=== PATIENT | female | born 1970 | race Caucasian/White ===

== ENCOUNTER → 2020-01-25 | Outpatient (CLI) | payer BC, MEDICARE ==
[~2020-01-25] MED LIST: BYST10TA2 PO; EQL50TAB2 PO; FURO40TA2 PO; GABA-843 PO; KLOR10TA76 PO; LANS30CA PO; LEVO25TA5 PO; LOSA50TA5 PO; MELO7.5T7 PO; META1TAB22 PO; MYRB25TA PO; STEL90IN INJ; VENL150C43 PO; VESI10TA2 PO; VITA200048 PO; VITATAB11 PO; ZONI50CA PO
== END ==
LOC: M LABSMTC 10:21
PROVIDERS: ATTEND Anesthesiology
DX: Z01.812 Encounter for preprocedural laboratory examination (principal); Z20.828 Contact with and (suspected) exposure to other viral communicable diseases

== ENCOUNTER 2020-01-30 10:38 | Day surgery (SDC) | payer BC, MEDICARE ==
[~2020-01-30] VITALS: Ht 160 cm; Wt 130.6 kg
[2020-01-30] MEDS ORDERED: MIDAZOLAM INJ 2MG/2ML VIAL (J2250 PER 1MG) As Ordered ONE (10:42)
[2020-01-30] MEDS ORDERED: fentaNYL 100 MCG/2 ML INJECTION (J3010) As Ordered ONE (10:43)
[2020-01-30] MEDS ORDERED: propofoL 500 MG/50 ML VIAL As Ordered ONE (10:50)
[2020-01-30] MEDS ORDERED: ceFAZolin 1GM VIAL (J0690 PER 500MG) As Ordered ONE (11:43)
[2020-01-30] MEDS ORDERED: LIDOCAINE 1% SDV 30ML VIAL As Ordered ONE (11:43)
[2020-01-30] MEDS ORDERED: LIDOCAINE 2% 100MG/5ML SDV (FOR ANES.) As Ordered ONE (11:46)
[2020-01-30] MEDS ORDERED: ceFAZolin SOD 2 GM in IV 1 EA IV ONE (12:00)
[2020-01-30] MEDS ORDERED: LR 1,000 ML IV ONE (12:00)
[2020-01-30] MEDS ORDERED: LABETALOL 100MG/20ML VIAL As Ordered ONE (12:16)
[2020-01-30] MEDS ORDERED: KETOROLAC 60MG 2ML VIAL As Ordered ONE ×2 (12:26→12:28)
[2020-01-30] MEDS ORDERED: dexameTHASONE 4 MG/ML 1ML VIAL (J1100 PER 1MG) As Ordered ONE (12:28)
[2020-01-30] MEDS ORDERED: flumazeniL 0.5 MG/5 ML VIAL As Ordered ONE (12:29)
[2020-01-30 15:08] VITALS: BP 159/76
--- NOTE | 2020-01-30 22:49 | ECGEPIP ---
[facility] Test Date: 2020-01-30 Pat Name: KELLY WOLF Department: Room: - Gender: Female [employer] Et[employer] Developer: BREANN : 1970 Requested By: Dennis Holden Order Number: [id number] Reading MD: Billy Piper Measurements Intervals [place] Rate: 69 P: 37 IN: 169 QRS: 30 QRSD: 108 T: 1 QT: 432 QTc: 465 Interpretive Statements SINUS RHYTHM NONSPECIFIC ST-T ABNORMALITY No prior ECG available for comparison at the time of interpretation. Electronically Signed on 01-30-2020 22:49:37 EST by Billy Piper
== END 2020-01-30 15:32 | disposition home or self-care (01) ==
LOC: M SDC 10:38
PROVIDERS: ATTEND Obstetrics & Gynecology
DX: R32 Unspecified urinary incontinence (principal); Z53.09 Procedure and treatment not carried out because of other contraindication; R11.10 Vomiting, unspecified
CPT/HCPCS: 93005; J0690; J1100; J1885; J2250; J3010

== ENCOUNTER → 2020-02-22 | Outpatient (CLI) | payer BC, MEDICARE | LOC: M LABSMTC 09:57 | PROVIDERS: ATTEND Anesthesiology | DX: Z01.812 Encounter for preprocedural laboratory examination (principal); Z20.828 Contact with and (suspected) exposure to other viral communicable diseases ==

== ENCOUNTER 2020-02-27 08:37 | Day surgery (SDC) | payer BC, MEDICARE ==
[~2020-02-27] VITALS: Ht 160 cm; Wt 118.8 kg
[~2020-02-27 08:37] MED LIST changes: +LIDOCAINE 1% MDV 20ML VIAL SQ PRN; +LR 1,000 ML IV ONE; +ceFAZolin SOD 2 GM in IV 1 EA IV ONE
[2020-02-27] MEDS ORDERED: propofoL 200 MG/20 ML VIAL As Ordered ONE ×2 (13:01→15:01)
[2020-02-27] MEDS ORDERED: LIDOCAINE 2% 100MG/5ML SDV (FOR ANES.) As Ordered ONE (13:01)
[2020-02-27] MEDS ORDERED: LIDOCAINE 1% SDV 30ML VIAL As Ordered ONE ×2 (13:24→14:03)
[2020-02-27] MEDS ORDERED: fentaNYL 250 MCG/5 ML INJECTION (J3010) As Ordered ONE (13:27)
[2020-02-27] MEDS ORDERED: ceFAZolin 1GM VIAL (J0690 PER 500MG) As Ordered ONE (14:54)
--- NOTE | 2020-02-27 15:54 | REP ---
INDICATION: PLACEMENT OF PERMANENT NEUROSTIMULATION GENERATOR. COMPARISON: None. TECHNIQUE: Two C-arm views of pelvic region performed. FINDINGS: A neurostimulator lead is seen with the tip overlying the region of the posterior pelvis at the level of the lower sacrum. IMPRESSION: 166 seconds of fluoroscopy time is utilized. <Electronically signed by Singh Diop > 02/27/20 0522
[2020-02-27] MEDS ORDERED: fentaNYL 100 MCG/2 ML INJECTION (J3010) IV PRN (17:00)
[2020-02-27] MEDS ORDERED: LR 1,000 ML IV SCH ×2 (17:00)
[2020-02-27] MEDS ORDERED: ONDANSETRON 4MG/2ML VIAL IV PRN (17:00)
[2020-02-27 17:05] VITALS: BP 149/74
--- NOTE | 2020-02-28 08:52 | RO ---
OPERATIVE NOTE DATE OF OPERATION: 02/27/2020 PREOPERATIVE DIAGNOSIS/INDICATION FOR SURGERY: Urinary incontinence. POSTOPERATIVE DIAGNOSIS: Urinary incontinence. PROCEDURE: InterStim neuromodulator placement stage 1 with placement, fluoroscopic guidance and programming. SURGEON: Marta Zambrano MD Rep was present as is typical for these cases. There is no specific water quality assistant. As noted, she also had fluoroscopic guidance. ANESTHESIA: Sedation and local. BRIEF DESCRIPTION OF PROCEDURE AND FINDINGS: Brandy was brought to the operating room where sufficient sedation was given. She was prepped, draped and positioned in the usual sterile fashion, placed prone as is typical for these cases and with the additional antibacterial sticky drape as well as the prep and given preop antibiotics. We then measured as is typical and placed needle first in the patient's left side. This was a little too vertical against the foramen so we replaced on the left side a little bit medial, a little bit more superior to inferior trying to follow the nerve. 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 When we went to place the lead we had difficulty getting a response despite response at 0.7 on the needle. So even though we had the lead there since it was not responding well we decided to pull it and try again. We went ahead and tried on the patient's right side and we got basically no response at all until we went up to numbers like 5, even though we tried a few placements in the third foramen we were able to confirm this by x-ray and we really got nothing for response except for a very, very high amplitude. We went back to the left side, tried different angle, a little more superior and a little more medial to foramen and got no response at all. We went closer to our original space slightly different position and then re-tried with the lead and we had decent response on 2, actually on #2 and 3, not so good at 0 and 1 but since we had tried in multiple placements through the foramen on both sides and this was the best response that we had, we decided to keep this one, tried several different angles for the lead to make sure that we had optimal lowest values we could. We could not get four lead response in this patient but we did have adequate response for the test and certainly findings on exam are consistent with her back pain concerns. The patient was feeling it in the vaginal area so it did appear to be right response even though it took higher amplitude than was hoped for. Having placed the lead and confirmed fluoroscopic guidance we had the right spot and confirmed with the testing that we had the best spot that we could get for this patient, went ahead and tunneled out, made a pocket for the extension and then tunneled out laterally for wire in the typical fashion for the newer smaller rechargeable device and the temporary device was programmed today. She will be testing it out. We did stitch the wire in place at the area for the extension just to keep it from migrating from the pocket and closed the pocket wound in deep layer of 2-0 Vicryl and at the skin with 3-0, also closed over the sacrum with 3-0 and at the lateral extension with interrupted stitch of 3-0. Dry, sterile dressings were applied. ESTIMATED BLOOD LOSS: Maybe 10 mL. FLUIDS: Fluid replacement was Crystalloid. COMPLICATIONS: None. As noted above we did have a difficult time finding optimal response but we had the needle in the 3rd sacral foramen on both sides, three times on the right, more than four times on the left and this was the optimal response that we could get. Brandy tolerated the procedure quite well and was recovering in the recovery room in good condition.
== END 2020-02-27 17:10 | disposition home or self-care (01) ==
LOC: M SDC 08:37
PROVIDERS: ATTEND Obstetrics & Gynecology
DX: R32 Unspecified urinary incontinence (principal); I10 Essential (primary) hypertension; G47.30 Sleep apnea, unspecified; E03.9 Hypothyroidism, unspecified; M79.7 Fibromyalgia; M35.00 Sjogren syndrome, unspecified; Z88.8 Allergy status to other drugs, medicaments and biological substances; Z79.899 Other long term (current) drug therapy
CPT/HCPCS: 64581; 76000; C1897; J0690; J3010

== ENCOUNTER → 2020-02-29 | Outpatient (CLI) | payer BC, MEDICARE ==
[~2020-02-29] MED LIST changes: -LIDOCAINE 1% MDV 20ML VIAL SQ PRN; -LR 1,000 ML IV ONE; -ceFAZolin SOD 2 GM in IV 1 EA IV ONE
== END ==
LOC: M LABSMTC 09:27
PROVIDERS: ATTEND Anesthesiology
DX: Z01.812 Encounter for preprocedural laboratory examination (principal); Z20.822 Contact with and (suspected) exposure to COVID-19

== ENCOUNTER 2020-03-05 07:08 | Day surgery (SDC) | payer BC, MEDICARE ==
[~2020-03-05] VITALS: Ht 160 cm; Wt 119.7 kg
[~2020-03-05 07:08] MED LIST changes: +GABA-282 PO; -GABA-843 PO; +LR 1,000 ML IV ONE; +ceFAZolin SOD 2 GM in IV 1 EA IV ONE
--- OUTSIDE RECORDS SUMMARY | 2020-03-05 07:29 | CCD | Continuity of Care Document ---
Author Author Brandy MOCK Organization Unknown Address [address] [place] [id number] Phone [phone] Care Team Providers Care Internet Assessor Name Role Phone Reason, Edward DO AUTM [phone] Problems Active Problems Provider Date Hypertensive disorder Marta Mock MD Onset: 07/21/2017 Social History Type Date Description Comments Sex Unknown Tobacco Use Start: Unknown Never Smoked Cigarettes ETOH Use Non-smoker, Occasional Drinker, Non-drug User Tobacco Use Start: Unknown Patient has never smoked Smoking Status Reviewed: 01/06/20 Patient has never smoked Exercise Type/Frequency Does not exercise Allergies, Adverse Reactions, Alerts Description No Known Drug Allergies Medications Active Medications SIG Qnty Indications Ordering Provide r Date Solifenacin Succinate 10mg Tablets Take One Tablet By Mouth Every Day 90tabs Matra Mock MD 09/17/2019 Myrbetriq 25mg Tablets ER 24HR take 1 tablet by mouth daily 90tabs N32.81 Marta Mock MD 07/22/19 18 Effexor XR 150mg Caps ER 24HR Unknown Vitamin D (Ergocalciferol) 20614Zhjp Capsules one by mouth weekly Unknown 00 Bystolic 10mg Tablets Unknown Hair Skin Nails Capsules Unknown Metaxalone 800mg Tablets Unknown Potassium 10Meq Tablets Unknown Stelara 45mg/0.5ML Soln Prefill Syringe Unknown Levothyroxine Sodium 25mcg Tablets 1 by mouth every day Unknown Immunizations Description No Information Available Vital Signs Date Vital Result Comment 07/21/2017 10:51am BP Systolic 124 mmHg BP Diastolic 78 mmHg Heart Rate 88 /min Height 63.50 inches 5'3.50" Weight 2601.00 lb BMI (Body Mass Index) 453.5 kg/m2 BSA (Body Surface Area) 5.79 m2 Results Description No Information Available Procedures Date Code Description Status 02/27/2020 99556 Neurostimulator Pulse Generator Brain/Spinal Cord First Hour Completed 02/27/2020 55538 Fluoroscopic guidanc e for needle placement (eg. Biopsy, aspiratio Completed 02/27/2020 95603 Insertion/Replacemen t Peripheral Neurostimulator Pulse Generator Completed 01/30/2020 08697 Neurostimulator Pulse Generator Brain/Spinal Cord First Hour Completed 01/30/2020 43967 Fluoroscopic guidanc e for needle placement (eg. Biopsy, aspiratio Completed 01/30/2020 54228 Insertion/Replacemen t Peripheral Neurostimulator Pulse Generator Completed Medical Devices Description No Information Available Encounters Type Date Location Provider Dx Diagnosis Office Visit 01/06/2020 2:00p [facility] angiographer Marta Mock MD N3 2.81 Overactive bladder N39.41 Urge incontinence R35.1 Nocturia N81.6 Rectocele N81.11 Cystocele, midline Assessments Date Code Description Provider 02/27/2020 N32.81 Overactive bladder Lyn Mock i, MD 02/27/2020 N39.41 Urge incontinence Marta Mock MD 02/27/2020 R35.1 Nocturia Marta Mock 01/06/2020 N32.81 Overactive bladder Lyn Mock i, MD 01/06/2020 N39.41 Urge incontinence Marta Mock MD 01/06/2020 R35.1 Nocturia Marta Mock 01/06/2020 N81.6 Rectocele Marta Mock 01/06/2020 N81.11 Cystocele, midline Lyn Mock i, MD Plan of Treatment Future Appointment(s):* 03/18/2020 10:45 am - Marta Mock MD at [facility] angiographer * 03/05/2020 10:30 am - Marta [facility] MD at [facility] * 03/03/2020 11:00 am - Marta Mock MD at [facility] angiographer 01/06/2020 - Marta Mock MD* N32.81 Overactive bladder * N39.41 Urge incontinence * R35.1 Nocturia * N81.6 Rectocele * N81.11 Cystocele, midline Functional Status Description No Information Available Mental Status Description No Information Available Referrals Description No Information Available
--- OUTSIDE RECORDS SUMMARY | 2020-03-05 07:29 | CCD | Continuity of Care Document ---
Author Author Brandy MOCK Organization Unknown Address [address] [place] [address] Phone [phone] Care Team Providers Care Pv Design Engineer Name Role Phone Reason, Edward DO AUTM [phone] Problems Active Problems Provider Date Hypertensive disorder Marta Mock MD Onset: 07/21/2017 Social History Type Date Description Comments Sex Unknown Tobacco Use Start: Unknown Never Smoked Cigarettes ETOH Use Non-smoker, Occasional Drinker, Non-drug User Tobacco Use Start: Unknown Patient has never smoked Smoking Status Reviewed: 03/03/20 Patient has never smoked Exercise Type/Frequency Does not exercise Allergies, Adverse Reactions, Alerts Description No Known Drug Allergies Medications Active Medications SIG Qnty Indications Ordering Provide r Date Solifenacin Succinate 10mg Tablets Take One Tablet By Mouth Every Day 90tabs Marta Mock MD 09/17/2019 Myrbetriq 25mg Tablets ER 24HR take 1 tablet by mouth daily 90tabs N32.81 Marta Mock MD 07/22/19 18 Effexor XR 150mg Caps ER 24HR Unknown Vitamin D (Ergocalciferol) 06609Qfwi Capsules one by mouth weekly Unknown 00 [...] Available Procedures Date Code Description Status 02/27/2020 45544 Neurostimulator Pulse Generator Brain/Spinal Cord First Hour Completed 02/27/2020 75109 Fluoroscopic guidanc e for needle placement (eg. Biopsy, aspiratio Completed 02/27/2020 62824 Insertion/Replacemen t Peripheral Neurostimulator Pulse Generator Completed 01/30/2020 06653 Neurostimulator Pulse Generator Brain/Spinal Cord First Hour Completed 01/30/2020 32346 Fluoroscopic guidanc e for needle placement (eg. Biopsy, aspiratio Completed 01/30/2020 92881 Insertion/Replacemen t Peripheral Neurostimulator Pulse Generator Completed Medical Devices Description No Information Available Encounters Type Date Location Provider Dx Diagnosis Office Visit 03/03/2020 11:00a [facility] [employer] [facility] and machine setter Marta Mock MD N3 2.81 Overactive bladder N39.41 Urge incontinence R35.1 Nocturia Office Visit 01/06/2020 2:00p [facility] section leader and machine setter Marta Mock MD N3 2.81 Overactive bladder N39.41 Urge incontinence R35.1 Nocturia N81.6 Rectocele N81.11 Cystocele, midline Assessments Date Code Description Provider 03/03/2020 N32.81 Overactive bladder Lyn Mock i, MD 03/03/2020 N39.41 Urge incontinence Marta Mock MD 03/03/2020 R35.1 Nocturia Marta Mock 02/27/2020 N32.81 Overactive bladder Lyn Mock i, [...] 10:45 am - Marta Mock MD at [facility] section leader and machine setter * 03/05/2020 10:30 am - Marta Mock MD at [facility] [place] 03/03/2020 - Marta Mock MD* N32.81 Overactive bladder * N39.41 Urge incontinence * R35.1 Nocturia Functional Status Description No Information Available Mental Status Description No Information Available Referrals Description No Information Available
--- OUTSIDE RECORDS SUMMARY | 2020-03-05 07:29 | CCD | Continuity of Care Document ---
Author Author Brandy MOCK Organization Unknown Address [address] [place] [address] Phone [phone] Care Team Providers Care Legislative Advocate Name Role Phone Reason, Edward DO AUTM [phone] Problems Active Problems Provider Date Hypertensive disorder [...] Caps ER 24HR Unknown Vitamin D (Ergocalciferol) 39961Lbkv Capsules one by mouth weekly Unknown 00 [...] Available Procedures Date Code Description Status 02/27/2020 52240 Neurostimulator Pulse Generator Brain/Spinal Cord First Hour Completed 02/27/2020 76644 Fluoroscopic guidanc e for needle placement (eg. Biopsy, aspiratio Completed 02/27/2020 71862 Insertion/Replacemen t Peripheral Neurostimulator Pulse Generator Completed 01/30/2020 92385 Neurostimulator Pulse Generator Brain/Spinal Cord First Hour Completed 01/30/2020 42343 Fluoroscopic guidanc e for needle placement (eg. Biopsy, aspiratio Completed 01/30/2020 07212 Insertion/Replacemen t Peripheral Neurostimulator Pulse Generator Completed Medical Devices Description No Information Available Encounters Type Date Location Provider Dx Diagnosis Office Visit 03/03/2020 11:00a [facility] pull up hand Marta Mock MD N3 2.81 Overactive bladder N39.41 Urge incontinence R35.1 Nocturia Office Visit 01/06/2020 2:00p [facility] pull up hand Marta Mock MD N3 2.81 Overactive bladder [...] 10:45 am - Marta Mock MD at [facility] pull up hand * 03/05/2020 10:30 am - Marta Mock MD at [facility] [place] 03/03/2020 - Marta Mock MD* N32.81 Overactive bladder * N39.41 Urge incontinence * R35.1 Nocturia Functional Status Description No Information Available Mental Status Description No Information Available Referrals Description No Information Available
--- OUTSIDE RECORDS SUMMARY | 2020-03-05 07:30 | CCD ---
Author Author [facility] Organization [facility] Address Unknown Phone Unavailable Care Team Providers Care Utility Driver Name Role Phone Truman, [id number] MD Nikunj KELSEY Unavailable Truman, [id number] MD Nikunj KELSEY Unavailable Truman, [id number] MD Nikunj KELSEY Unavailable [phone] Truman, [id number] MD Nikunj KELSEY Unavailable [phone] Truman, [id number] MD Nikunj KELSEY Unavailable [phone] Truman, [id number] MD Nikunj KELSEY Unavailable [phone] Truman, [id number] MD Nikunj KELSEY Unavailable [phone] Truman, [id number] MD Nikunj KELSEY Unavailable Truman, [id number] MD Nikunj KELSEY Unavailable [phone] Truman, [id number] MD Nikunj KELSEY Unavailable Truman, [id number] MD Nikunj KELSEY Unavailable Truman, [id number] MD Nikunj MD Unavailable Truman, [id number] MD Nikunj MD Unavailable Truman, [id number] MD Nikunj MD Unavailable Truman, [id number] MD Nikunj MD Unavailable Truman, [id number] MD Nikunj MD Unavailable Truman, [id number] MD Nikunj MD Unavailable Truman, [id number] MD Nikunj MD Unavailable Truman, [id number] MD Nikunj MD Unavailable Truman, [id number] MD Nikunj MD Unavailable Truman, [id number] MD Nikunj MD Unavailable Truman, [id number] MD Nikunj MD Unavailable Truman, [id number] MD Nikunj MD Unavailable Truman, [id number] MD Nikunj MD Unavailable Truman, [id number] MD Nikunj MD Unavailable Truman, [id number] MD Nikunj MD Unavailable Truman, [id number] MD Nikunj MD Unavailable Truman, [id number] MD Nikunj MD Unavailable Truman, [id number] MD Nikunj MD Unavailable Truman, [id number] MD Nikunj MD Unavailable Truman, [id number] MD Nikunj MD Unavailable JOSE OSEGUERA DO Unavailable Unavailable JOSE OSEGUERA DO Unavailable Unavailable JOSE OSEGUERA DO Unavailable Unavailable JOSE OSEGUERA DO Unavailable Unavailable HEISS, JOSE DO Unavailable Unavailable HEISS, JOSE DO Unavailable Unavailable HEISS, JOSE DO Unavailable Unavailable HEISS, JOSE DO Unavailable Unavailable HEISS, JOSE DO Unavailable Unavailable HEISS, JOSE DO Unavailable Unavailable HEISS, JOSE DO Unavailable Unavailable HEISS, JOSE DO Unavailable Unavailable HEISS, JOSE DO Unavailable Unavailable HEISS, JOSE DO Unavailable Unavailable HEISS, JOSE DO Unavailable Unavailable HEISS, JOSE DO Unavailable Unavailable HEISS, JOSE DO Unavailable Unavailable HEISS, JOSE DO Unavailable Unavailable HEISS, JOSE DO Unavailable Unavailable HEISS, JOSE DO Unavailable Unavailable HEISS, JOSE DO Unavailable Unavailable REASON, L EDWARD DO Unavailable Unavailable REASON, L EDWARD DO Unavailable Unavailable REASON, L EDWARD DO Unavailable Unavailable REASON, L EDWARD DO Unavailable Unavailable REASON, L EDWARD DO Unavailable Unavailable REASON, L EDWARD DO Unavailable Unavailable REASON, L EDWARD DO Unavailable Unavailable REASON, L EDWARD DO Unavailable Unavailable REASON, L EDWARD DO Unavailable Unavailable REASON, L EDWARD DO Unavailable Unavailable REASON, L EDWARD DO Unavailable Unavailable REASON, L EDWARD DO Unavailable Unavailable REASON, L EDWARD DO Unavailable Unavailable REASON, L EDWARD DO Unavailable Unavailable REASON, L EDWARD DO Unavailable Unavailable REASON, L EDWARD DO Unavailable Unavailable REASON, L EDWARD DO Unavailable Unavailable REASON, L EDWARD DO Unavailable Unavailable REASON, L EDWARD DO Unavailable Unavailable REASON, L EDWARD DO Unavailable Unavailable REASON, L EDWARD DO Unavailable Unavailable REASON, L EDWARD DO Unavailable Unavailable REASON, L EDWARD DO Unavailable Unavailable REASON, L EDWARD DO Unavailable Unavailable REASON, L EDWARD DO Unavailable Unavailable REASON, L EDWARD DO Unavailable Unavailable REASON, L EDWARD DO Unavailable Unavailable REASON, L EDWARD DO Unavailable Unavailable REASON, L EDWARD DO Unavailable Unavailable REASON, L EDWARD DO Unavailable Unavailable REASON, L EDWARD DO Unavailable Unavailable REASON, L EDWARD DO Unavailable Unavailable REASON, L EDWARD DO Unavailable Unavailable REASON, L EDWARD DO Unavailable Unavailable REASON, L EDWARD DO Unavailable Unavailable REASON, L EDWARD DO Unavailable Unavailable REASON, L EDWARD DO Unavailable Unavailable REASON, L EDWARD DO Unavailable Unavailable REASON, L EDWARD DO Unavailable Unavailable REASON, L EDWARD DO Unavailable Unavailable REASON, L EDWARD DO Unavailable Unavailable REASON, L EDWARD DO Unavailable Unavailable REASON, L EDWARD DO Unavailable Unavailable REASON, L EDWARD DO Unavailable Unavailable REASON, L EDWARD DO Unavailable Unavailable REASON, L EDWARD DO Unavailable Unavailable REASON, L EDWARD DO Unavailable Unavailable REASON, L EDWARD DO Unavailable Unavailable REASON, L EDWARD DO Unavailable Unavailable REASON, L EDWARD DO Unavailable Unavailable REASON, L EDWARD DO Unavailable Unavailable REASON, L EDWARD DO Unavailable Unavailable REASON, L EDWARD DO Unavailable Unavailable REASON, L EDWARD DO Unavailable Unavailable REASON, L EDWARD DO Unavailable Unavailable REASON, L EDWARD DO Unavailable Unavailable REASON, L EDWARD DO Unavailable Unavailable REASON, L EDWARD DO Unavailable Unavailable REASON, L EDWARD DO Unavailable Unavailable REASON, L EDWARD DO Unavailable Unavailable REASON, L EDWARD DO Unavailable Unavailable REASON, L EDWARD DO Unavailable Unavailable REASON, L EDWARD DO Unavailable Unavailable REASON, L EDWARD DO Unavailable Unavailable Justin Oseguera DO Unavailable Unavailable BRIANNA ESQUIVEL MD Unavailable Unavailable ZEGILPaulie PHYSICIAN PRESIDENT Unavailable Unavailable ZEGILPaulie PHYSICIAN PRESIDENT Unavailable Unavailable ZEGILPaulie PHYSICIAN PRESIDENT Unavailable Unavailable WILMA Esquivel MD Unavailable WILMA Esquivel MD Unavailable WILMA Esquivel MD Unavailable WILMA Esquivel MD Unavailable WILMA Esquivel MD Unavailable WILMA Esquivel MD Unavailable WILMA Esquivel MD Unavailable WILMA Esquivel MD Unavailable WILMA Esquivel MD Unavailable WILMA Esquivel MD Unavailable WILMA Esquivel MD Unavailable WILMA Esquivel MD Unavailable WILMA Esquivel MD Unavailable WILMA Esquivel MD Unavailable WILMA Esquivel MD Unavailable WILMA Esquivel MD Unavailable WILMA Esquivel MD Unavailable JOSE OSEGUERA DO Unavailable Unavailable Justin MOCK MD Unavailable Unavailable Justin MOCK MD Unavailable Unavailable Justin MOCK MD Unavailable Unavailable MOCK, L HARIKA MD Unavailable Unavailable MOCK, L HARIKA MD Unavailable Unavailable MOCK, L HARIKA MD Unavailable Unavailable MOCK, L HARIKA MD Unavailable Unavailable MOCK, L HARIKA MD Unavailable Unavailable MOCK, L HARIKA MD Unavailable Unavailable MOCK, L HARIKA MD Unavailable Unavailable MOCK, L HARIKA MD Unavailable Unavailable MOCK, L HARIKA MD Unavailable Unavailable MOCK, L HARIKA MD Unavailable Unavailable MOCK, L HARIKA MD Unavailable Unavailable MOCK, L HARIKA MD Unavailable Unavailable MOCK, L HARIKA MD Unavailable Unavailable MOCK, L HARIKA MD Unavailable Unavailable MOCK, L HARIKA MD Unavailable Unavailable MOCK, L HARIKA MD Unavailable Unavailable MOCK, L HARIKA MD Unavailable Unavailable MOCK, L HARIKA MD Unavailable Unavailable MOCK, L HARIKA MD Unavailable Unavailable MOCK, L HARIKA MD Unavailable Unavailable MOCK, L HARIKA MD Unavailable Unavailable MOCK, L HARIKA MD Unavailable Unavailable MOCK, L HARIKA MD Unavailable Unavailable MOCK, L HARIKA MD Unavailable Unavailable MOCK, L HARIKA MD Unavailable Unavailable MOCK, L HARIKA MD Unavailable Unavailable MCOK, L HARIKA MD Unavailable Unavailable MOCK, L HARIKA MD Unavailable Unavailable MOCK, L HARIKA MD Unavailable Unavailable MOCK, L HARIKA MD Unavailable Unavailable MOCK, L HARIKA MD Unavailable Unavailable MOCK, L HARIKA MD Unavailable Unavailable MOCK, L HARIKA MD Unavailable Unavailable MOCK, L HARIKA MD Unavailable Unavailable MOCK, L HARIKA MD Unavailable Unavailable MOCK, L HARIKA MD Unavailable Unavailable MOCK, L HARIKA MD Unavailable Unavailable MOCK, L HARIKA MD Unavailable Unavailable MOCK, L HARIKA MD Unavailable Unavailable Re-disclosure Warning The records that you are about to access may contain information from federally-assisted alcohol or drug abuse programs. If such information is present, then the following federally mandated warning applies: This information has been disclosed to you from records protected by federal confidentiality rules (42 CFR part 2). The federal rules prohibit you from making any further disclosure of this information unless further disclosure is expressly permitted by the written consent of the person to whom it pertains or as otherwise permitted by 42 CFR part 2. A general authorization for the release of medical or other information is NOT sufficient for this purpose. The Federal rules restrict any use of the information to criminally investigate or prosecute any alcohol or drug abuse patient.The records that you are about to access may contain highly sensitive health information, the redisclosure of which is protected by Article 27-F of the [facility] Public Health law. If you continue you may have access to information: Regarding HIV / AIDS; Provided by facilities licensed or operated by the [facility] Office of Mental Health; or Provided by the [facility] Office for People With Developmental Disabilities. If such information is present, then the following [facility] mandated warning applies: This information has been disclosed to you from confidential records which are protected by state law. State law prohibits you from making any further disclosure of this information without the specific written consent of the person to whom it pertains, or as otherwise permitted by law. Any unauthorized further disclosure in violation of state law may result in a fine or usp sentence or both. A general authorization for the release of medical or other information is NOT sufficient authorization for further disc losure. 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 Outpatient Attender: JOSE OSEGUERA DOAttender: JOSE OSEGUERA DO ER-RAD 01/21/2020 02:51:00 PM EST [facility] Outpatient Attender: [id number] Nikunj Laughlin MD [facility] 01/06/2020 01:23:00 PM EST - 01/06/2020 01:24:00 PM EST [facility] Patient discharged. 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 bridge 01:00:00 PM EST MEDENT ([facility] [employer]) Outpatient Attender: SERA ARANOG DO ED-LAB 12/24/2019 01: 15:00 PM EST I10 R53.82 [facility] I10 R53.82 Outpatient [address] [facility] [address] [place] [address] 08/15/2019 12:00:00 AM EDT eCW1 ([facility]) [facility] [address] [facility] [address] [place] [address] 07/31/2019 12:00:00 AM EDT eCW1 ([facility]) Emergency Attender: [facility] ED-ED 06/20 07:35:00 PM EDT - 07/02/2019 08:43:00 PM EDT LIGHT HEADED, HEARTBURN SYMPTOMS [facility] LIGHT HEADED, HEARTBURN SYMPTOMS Patient discharged. [address] [address] 05/31/2019 12:00:00 AM EDT eCW1 ([facility]) [address] [address] 05/21/2019 12:00:00 AM EDT eCW1 ([facility]) Outpatient [facility]PS[facility]-LABEJN 05/20/2019 08:17:00 PM EDT [facility] Outpatient Attender: Jose Oseguera DOAttender: JOSE OSEGUERA DO ED-LAB 05/20/2019 04:13:00 PM EDT - 05/20/2019 04:14:00 PM EDT R30.0 [facility] R30.0 Patient discharged. [address] [place] [address] 05/20/2019 12:00:00 AM EDT eCW1 ([facility]) Outpatient Attender: [id number] Nikunj Laughlin MD [facility] 05/14/2019 09:43:00 AM EDT - 05/14/2019 09:44:00 AM EDT [facility] Patient discharged. Outpatient Attender: Brianna Esquivel MDAttender: BRIANNA SARGENT MD -[facility] 01/08/2019 01:19:00 AM [facility] Outpatient Attender: BRIANNA ESQUIVEL MD 12/24/2018 01:01:00 PM [facility] Outpatient Attender: Brianna Esquivel MDAttender: BRIANNA SARGENT MD ER-RAD 12/24/2018 03:02:00 AM [facility] Outpatient Attender: [id number] Nikunj Laughlin MD [facility] 12/18/2018 11:08:00 AM EDT - 12/18/2018 11:09:00 AM EDT [facility] Patient discharged. Outpatient Attender: Brianna Esquivel MDAttender: BRIANNA SARGENT MD ER-CTCMEDONC 11/06/2018 12:36:00 AM [facility] Medications Medication Brand Name Start Date Product Form Dose Route Admi nistrative Instructions Pharmacy Instructions Status Indications Reaction Description Data Source(s) 5 % 01/30/2020 12:00:00 AM EST adhesive patch,medicate d 90 APPLY UP TO 3 PATCHES TO AFFECTED AREAS (NECK AND BACK) DIRECTED, 12 HOURS ON AND THEN 12 HOURS OFF APPLY UP TO 3 PATCHES TO AFFECTED AREAS (NECK AND BACK) DIRECTED, 12 HOURS ON AND THEN 12 HOURS OFF SOLD: 02/05/2020 [facility] 30 mg 01/25/2020 12:00:00 AM EST capsule,delayed release (DR/EC) 90 TAKE ONE CAPSULE BY MOUTH EVERY DAY TAKE ONE CAPSULE BY MOUTH EVERY DAY SOLD: 02/05/2020 [facility] 50 mg 01/22/2020 12:00:00 AM EST tablet 180 TAKE ONE TABLET BY MOUTH TWICE A DAY TAKE ONE TABLET BY MOUTH TWICE A DAY SOLD: 02/05/2020 [facility] 25 mcg 01/01/2020 12:00:00 AM EST tablet 30 TAKE ONE TABLET BY MOUTH EVERY DAY TAKE ONE TABLET BY MOUTH EVERY DAY SOLD: 01/01/2020 [facility] 800 mg 01/01/2020 12:00:00 AM EST tablet 180 TAKE ONE TABLET BY MOUTH TWICE A DAY NEEDED TAKE ONE TABLET BY MOUTH TWICE A DAY NEEDED SOLD: 020 [facility] Hydrochlorothiazide 12.5 MG Oral Tablet HYDROCHLOROTHIAZIDE 01/01/2020 12:00:00 AM EST tablet 90 TAKE ONE TABLET BY MOUTH ОЛЕГ RY DAY TAKE ONE TABLET BY MOUTH EVERY DAY SOLD: 01/01/2020 [facility] 50 mg 01/01/2020 12:00:00 AM EST tablet 90 TAKE ONE TABLET BY MOUTH EVERY DAY TAKE ONE TABLET BY MOUTH EVERY DAY SOLD: 01/01/2020 [facility] 150 mg 01/01/2020 12:00:00 AM EST capsule,extended releas e 24hr 90 TAKE ONE CAPSULE BY MOUTH EVERY DAY TAKE ONE CAPSULE BY MOUTH EVERY DAY SOLD: 01/01/2020 [facility] 25 mg 09/23/2019 12:00:00 AM EDT tablet extended release 24 hr 90 TAKE 1 TABLET BY MOUTH DAILY TAKE 1 TABLET BY MOUTH DAILY SOLD: 12/21/2019 [facility] 25 mg 09/23/2019 12:00:00 AM EDT tablet extended release 24 hr 90 TAKE 1 TABLET BY MOUTH DAILY TAKE 1 TABLET BY MOUTH DAILY SOLD: 09/24/2019 [facility] 10 mg 09/18/2019 12:00:00 AM EDT tablet 90 TAKE ONE TABLET BY MOUTH EVERY DAY TAKE ONE TABLET BY MOUTH EVERY DAY SOLD: 12/21/2019 [facility] 10 mg 09/18/2019 12:00:00 AM EDT tablet 90 TAKE ONE TABLET BY MOUTH EVERY DAY TAKE ONE TABLET BY MOUTH EVERY DAY SOLD: 09/24/2019 [facility] solifenacin succinate 10 MG Oral Tablet Solifenacin Succinat e 09/17/2019 12:00:00 AM EDT active M EDENT ([facility] [employer]) 1 % 09/02/2019 12:00:00 AM EDT drops,suspension 5 INSTILL 1 DROP INTO BOTH EYES FOUR TIMES A DAY DIRECTED INSTILL 1 DROP INTO BOTH EYES FOUR TIMES A DAY DIRECTED SOLD: 09/03/2019 [facility] 150 mg 07/08/2019 12:00:00 AM EDT capsule,extended releas e 24hr 30 TAKE ONE CAPSULE BY MOUTH EVERY DAY TAKE ONE CAPSULE BY MOUTH EVERY DAY SOLD: 11/16/2019 [facility] 150 mg 07/08/2019 12:00:00 AM EDT capsule,extended releas e 24hr 30 TAKE ONE CAPSULE BY MOUTH EVERY DAY TAKE ONE CAPSULE BY MOUTH EVERY DAY SOLD: 10/08/2019 [facility] 150 mg 07/08/2019 12:00:00 AM EDT capsule,extended releas e 24hr 30 TAKE ONE CAPSULE BY MOUTH EVERY DAY TAKE ONE CAPSULE BY MOUTH EVERY DAY SOLD: 12/08/2019 [facility] 150 mg 07/08/2019 12:00:00 AM EDT capsule,extended releas e 24hr 30 TAKE ONE CAPSULE BY MOUTH EVERY DAY TAKE ONE CAPSULE BY MOUTH EVERY DAY SOLD: 09/11/2019 [facility] 150 mg 07/08/2019 12:00:00 AM EDT capsule,extended releas e 24hr 30 TAKE ONE CAPSULE BY MOUTH EVERY DAY TAKE ONE CAPSULE BY MOUTH EVERY DAY SOLD: 07/10/2019 [facility] 150 mg 07/08/2019 12:00:00 AM EDT capsule,extended releas e 24hr 30 TAKE ONE CAPSULE BY MOUTH EVERY DAY TAKE ONE CAPSULE BY MOUTH EVERY DAY SOLD: 08/14/2019 [facility] pantoprazole 20 MG Delayed Release Oral Tablet PANTOPRAZOLE SODIUM 07/03/2019 12:00:00 AM EDT tablet,delayed release (DR/EC) 30 T ARMINDA ONE TABLET BY MOUTH EVERY DAY TAKE ONE TABLET BY MOUTH EVERY DAY SOLD: 07/10/2019 [facility] 300 mg 07/01/2019 12:00:00 AM EDT capsule 21 TAKE 1 CAPSULE BY MOUTH EVERY 8 HOURS DIRECTED TAKE 1 CAPSULE BY MOUTH EVERY 8 HOURS DIRECTED SOLD : 07/01/2019 [facility] 500 mg 07/01/2019 12:00:00 AM EDT tablet 14 TAKE 1 TABLET BY MOUTH EVERY 12 HOURS TAKE 1 TABLET BY MOUTH EVERY 12 HOURS SOLD: 07/01/2019 [facility] 2 % 06/29/2019 12:00:00 AM EDT ointment 22 APPLY TO AFFECTED AREA(S) TWO TIMES A DAY APPLY TO AFFECTED AREA(S) TWO TIMES A DAY SOLD: 06/29/2019 [facility] 500-125 mg 06/29/2019 12:00:00 AM EDT tablet 21 TAKE ONE TABLET BY MOUTH EVERY 8 HOURS WITH FOOD TAKE ONE TABLET BY MOUTH EVERY 8 HOURS WITH FOOD SOLD: 06/29/2019 [facility] 10 mg 05/15/2019 12:00:00 AM EDT tablet 180 TAKE ONE TABLET BY MOUTH TWICE A DAY TAKE ONE TABLET BY MOUTH TWICE A DAY SOLD: 05/18/2019 [facility] 10 mg 05/15/2019 12:00:00 AM EDT tablet 174 TAKE ONE TABLET BY MOUTH TWICE A DAY TAKE ONE TABLET BY MOUTH TWICE A DAY SOLD: 12/21/2019 [facility] 10 mg 05/14/2019 12:00:00 AM EDT tablet 11 TAKE ONE TABLET BY MOUTH ONCE DAILY FOR 7 DAYS, THEN TAKE ONE-HALF TABLET DAILY FOR 7 DAYS TAKE ONE TABLET BY MOUTH ONCE DAILY FOR 7 DAYS, THEN TAKE ONE-HALF TABLET DAILY FOR 7 DAYS SOLD: 05/18/2019 [facility] 50 mg 05/03/2019 12:00:00 AM EDT tablet 60 TAKE ONE TABLET BY MOUTH TWICE A DAY TAKE ONE TABLET BY MOUTH TWICE A DAY SOLD: 07/10/2019 [facility] 50 mg 05/03/2019 12:00:00 AM EDT tablet 60 TAKE ONE TABLET BY MOUTH TWICE A DAY TAKE ONE TABLET BY MOUTH TWICE A DAY SOLD: 12/08/2019 [facility] 12.5 mg 05/03/2019 12:00:00 AM EDT tablet 60 TAKE ONE TABLET BY MOUTH TWICE A DAY DIRECTED TAKE ONE TABLET BY MOUTH TWICE A DAY DIRECTED SOLD: 05/03/2019 [facility] Losartan Potassium 50 MG Oral Tablet LOSARTAN POTASSIUM 12:00:00 AM EDT tablet 60 TAKE ONE TABLET BY MOUTH TWI CE A DAY TAKE ONE TABLET BY MOUTH TWICE A DAY SOLD: 05/03/2019 [facility] 500-125 mg 04/30/2019 12:00:00 AM EDT tablet 30 TAKE ONE TABLET BY MOUTH EVERY 8 HOURS DIRECTED TAKE ONE TABLET BY MOUTH EVERY 8 HOURS DIRECTED SOLD: 04/30/2019 [facility] 150 mg 01/09/2019 12:00:00 AM EST capsule,extended releas e 24hr 30 TAKE ONE CAPSULE BY MOUTH EVERY DAY TAKE ONE CAPSULE BY MOUTH EVERY DAY SOLD: 02/03/2019 [facility] 800 mg 01/09/2019 12:00:00 AM EST tablet 90 TAKE ONE TABLET BY MOUTH THREE TIMES A DAY NEEDED TAKE ONE TABLET BY MOUTH THREE TIMES A DAY NEEDED S OLD: 07/10/2019 [facility] 800 mg 01/09/2019 12:00:00 AM EST tablet 90 TAKE ONE TABLET BY MOUTH THREE TIMES A DAY NEEDED TAKE ONE TABLET BY MOUTH THREE TIMES A DAY NEEDED S OLD: 01/09/2019 [facility] 800 mg 01/09/2019 12:00:00 AM EST tablet 90 TAKE ONE TABLET BY MOUTH THREE TIMES A DAY NEEDED TAKE ONE TABLET BY MOUTH THREE TIMES A DAY NEEDED S OLD: 10/08/2019 [facility] 150 mg 01/09/2019 12:00:00 AM EST capsule,extended releas e 24hr 30 TAKE ONE CAPSULE BY MOUTH EVERY DAY TAKE ONE CAPSULE BY MOUTH EVERY DAY SOLD: 03/13/2019 [facility] 150 mg 01/09/2019 12:00:00 AM EST capsule,extended releas e 24hr 30 TAKE ONE CAPSULE BY MOUTH EVERY DAY TAKE ONE CAPSULE BY MOUTH EVERY DAY SOLD: 06/12/2019 [facility] 150 mg 01/09/2019 12:00:00 AM EST capsule,extended releas e 24hr 30 TAKE ONE CAPSULE BY MOUTH EVERY DAY TAKE ONE CAPSULE BY MOUTH EVERY DAY SOLD: 05/08/2019 [facility] 150 mg 01/09/2019 12:00:00 AM EST capsule,extended releas e 24hr 30 TAKE ONE CAPSULE BY MOUTH EVERY DAY TAKE ONE CAPSULE BY MOUTH EVERY DAY SOLD: 01/09/2019 [facility] 800 mg 01/09/2019 12:00:00 AM EST tablet 90 TAKE ONE TABLET BY MOUTH THREE TIMES A DAY NEEDED TAKE ONE TABLET BY MOUTH THREE TIMES A DAY NEEDED S OLD: 04/14/2019 [facility] 150 mg 01/09/2019 12:00:00 AM EST capsule,extended releas e 24hr 30 TAKE ONE CAPSULE BY MOUTH EVERY DAY TAKE ONE CAPSULE BY MOUTH EVERY DAY SOLD: 04/14/2019 [facility] 10 mg 01/07/2019 12:00:00 AM EST tablet 60 TAKE ONE TABLET BY MOUTH TWICE A DAY TAKE ONE TABLET BY MOUTH TWICE A DAY SOLD: 01/09/2019 [facility] 10 mg 01/07/2019 12:00:00 AM EST tablet 60 TAKE ONE TABLET BY MOUTH TWICE A DAY TAKE ONE TABLET BY MOUTH TWICE A DAY SOLD: 03/13/2019 [facility] 30 mg 11/03/2018 12:00:00 AM EDT capsule,delayed release (DR/EC) 90 TAKE ONE CAPSULE BY MOUTH ONCE A DAY DIRECTED TAKE ONE CAPSULE BY MOUTH ONCE A DAY DIRECTED SOLD: 09/03/2019 [facility] 30 mg 11/03/2018 12:00:00 AM EDT capsule,delayed release (DR/EC) 90 TAKE ONE CAPSULE BY MOUTH ONCE A DAY DIRECTED TAKE ONE CAPSULE BY MOUTH ONCE A DAY DIRECTED SOLD: 05/08/2019 [facility] 30 mg 11/03/2018 12:00:00 AM EDT capsule,delayed release (DR/EC) 90 TAKE ONE CAPSULE BY MOUTH ONCE A DAY DIRECTED TAKE ONE CAPSULE BY MOUTH ONCE A DAY DIRECTED SOLD: 02/03/2019 [facility] 25 mg 11/02/2018 12:00:00 AM EDT tablet extended release 24 hr 90 TAKE 1 TABLET BY MOUTH DAILY TAKE 1 TABLET BY MOUTH DAILY SOLD: 05/08/2019 [facility] 25 mg 11/02/2018 12:00:00 AM EDT tablet extended release 24 hr 90 TAKE 1 TABLET BY MOUTH DAILY TAKE 1 TABLET BY MOUTH DAILY SOLD: 02/03/2019 [facility] 10 mg 10/16/2018 12:00:00 AM EDT tablet 90 TAKE ONE TABLET BY MOUTH EVERY DAY TAKE ONE TABLET BY MOUTH EVERY DAY SOLD: 02/03/2019 [facility] 10 mg 10/16/2018 12:00:00 AM EDT tablet 90 TAKE ONE TABLET BY MOUTH EVERY DAY TAKE ONE TABLET BY MOUTH EVERY DAY SOLD: 05/08/2019 [facility] 50-12.5 mg 09/05/2018 12:00:00 AM EDT tablet 60 TAKE ONE TABLET BY MOUTH TWICE A DAY TAKE ONE TABLET BY MOUTH TWICE A DAY SOLD: 02/03/2019 [facility] 50 mg 03/27/2018 12:00:00 AM EST capsule 270 TAKE ONE CAPSULE BY MOUTH IN THE MORNING AND TWO AT BEDTIME DAILY TAKE ONE CAPSULE BY MOUTH IN THE MORNING AND TWO AT BEDTIME DAILY SOLD: 02/03/2019 [facility] Insurance Providers Payer name Policy type / Coverage type Policy ID Covered constitution party ID Covered constitution party's relationship to case Policy Case Plan Information [place] [phone] [id number] MEDICARE [id number] SP [id number] [place] [employer] [place] [id number] SPOUSE [id number] MEDICARE [id number] S [id number] MEDICARE [id number] S [id number] [place] [employer] [place] [id number] SPOUSE [id number] MEDICARE [id number] SP [id number] MEDICARE [id number] S [id number] BLUE CROSS [id number] BLUE CROSS [id number] [facility] [id number] MCRB [id number] S [id number] BLUE CROSS [id number] [id number] BLUE CROSS [id number] MEDICARE [id number] A EXCELLUS [employer] [id number] SPOUSE [id number] EX[place]LLUS [place] [id number] SPOUSE [id number] BLUE [place]OSS [id number] HUS [id number] ANSI-Medicare Part B [id number] ANSI-Commercial [id number] ANSI-Medicare Part B [id number] ANSI-Commercial [id number] MEDICARE [id number] S [id number] ANSI-Medicare Part B [id number] ANSI-Commercial [id number] EXCELLUS BCBS B [id number] P VYA MEDICARE C [id number] P [id number] EXCELLUS BCBS B [id number] P [id number] [id number] Medicare Part B Medicare Primary [id number] Self [id number] BC/BS Of [place] Commercial [id number] Family Depe ndent [id number] EXCELLUS BCBS B [id number] P VYS [id number] MEDICARE C [id number] S [id number] A [place] 302/307 [id number] HU2 [id number] [place]/307 [id number] HU2 [id number] MEDICARE [id number] SP [id number] A [place] [id number] Self [id number] BS [place] [id number] Family Dependent [id number] [place] Med[place] Part B [id number] Self [id number] BS Of [place] Commercial [id number] Family Depende nt [id number] [place] Med[place] Part B [id number] Self [id number] BS Of [place] Commercial [id number] Family Depende nt [id number] [place]/[facility] Medicare Primary [id number] [facility] [id number] [facility]) [id number] Family Dependent [id number] [place] Med[place] Part B [id number] Self [id number] BS [place] [employer] [id number] Family Dependent [id number] Medicare Part B Medicare Primary [id number] Self [id number] [place] Medicare Primary [id number] Self [id number] [facility]) [id number] Family Dependent [id number] Medicare Part B Medicare Primary [id number] Self [id number] Medicare Part B Medicare Primary [id number] Self [id number] Medicare Part B Medicare Primary [id number] Self [id number] Medicare Part B Medicare Primary [id number] Self [id number] Medicare Part B Medicare Primary Self BC/BS Of [place] Commercial Family Depende nt BS [place] Medigap Part B Self Medicare [facility] Part B Self BS [place] Commercial Family Dependent Medicare Medicare Primary Self MEDICARE -O/P [id number] BL[place]OSS -O/P [id number] 01 [id number] MCRB [id number] S [id number] A MEDICARE -O/P [id number] 18 [id number] [place] BCBS P [id number] P VYS [id number] [place] P[place] 302/307 [id number] HU2 [id number] MEDICARE A [id number] Self [id number] A EXCELLUS H [id number] Spouse [id number] BLUE CROSS -O/P UNAVAILABLE UNAVAILABLE [id number] Problems, Conditions, and Diagnoses Code Display Name Description Problem Type Effective Dates Data Source(s) I10 Essential (primary) hypertension ESSENTIAL (PRIMARY) H YPERTENSION Diagnosis 01/22/2020 11:13:00 AM [facility] Z01.818 Encounter for other preprocedural examin ation ENCOUNTER FOR OTHER PREPROCEDURAL EXAMINATION Diagnosis 01/22/2020 11:13:00 AM [facility] Z12.31 Encounter for screening mammogram for ma lignant neoplasm of breast ENCNTR SCREEN MAMMOGRAM FOR MALIGNANT NEOPLASM OF BREAST Diagnosis 02/2019 02:51:00 PM [facility] Z79.899 Other long term care phlebotomist (current) drug therapy O THER LONG-TERM (CURRENT) DRUG THERAPY Diagnosis 01/06/2020 01:23:00 PM [facility] L40.53 Psoriatic spondylitis PSORIATIC SPONDYLITIS Diagnosis 01/06/2020 01:23:00 PM [facility] K21.9 Gastro-esophageal reflux disease without esophagitis GASTRO-ESOPHAGEAL REFLUX DISEASE WITHOUT ESOPHAGITIS Diagnosis 07/02/2019 07:35:00 PM ED [facility] R30.0 Dysuria DYSURIA Diagnosis 05/20/2019 04:13:00 PM ED [facility] Z87.42 Personal history of other diseases of th e female genital tract PERSONAL HISTORY OF OTH DISEASES OF THE FEMALE GEN Diagnosis 01/08/2019 01:19:0 0 AM [facility] Z80.8 Family history of malignant neoplasm of other organs or systems FAMILY HISTORY OF MALIGNANT NEOPLASM OF ORGANS OR Diagnosis 01/08/2019 01:19: 00 AM [facility] 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 DIFFUSE CYSTIC MASTOPATHY OF LEFT BREAST Diagnosis 01/08/2019 01:19:00 AM [facility] Z80.3 Family history of malignant neoplasm of breast FAMILY HISTORY OF MALIGNANT NEOPLASM OF Diagnosis 01/08/2019 01:19:00 AM [facility] N60.11 Diffuse cystic mastopathy of right breas t DIFFUSE CYSTIC MASTOPATHY OF RIGHT BREAST Diagnosis 01/08/2019 01:19:00 AM [facility] Surgeries/Procedures Procedure Description Date Indications Data Source(s) Insertion/Replacement Peripheral Neurostimulator Pulse Gener ator 02/27/2020 12:00:00 AM EST [facility] ([facility] [employer]) Fluoroscopic guidance for needle placement (eg. 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 Biopsy, aspi ratio 01/30/2020 12:00:00 AM EST [facility] ([facility] [employer] WORK[employer]) Neurostimulator Pulse Generator Brain/Spinal Cord First Hour 01/30/2020 12:00:00 AM EST [facility] ([facility] [employer] WORKER) ECG ROUTINE ECG W/LEAST 12 LDS TRCG ONLY W/O I&R ELECTROCARD IOGRAM TRACING 01/22/2020 12:00:00 AM [facility] COLLECTION VENOUS BLOOD VENIPUNCTURE ROUTINE VENIPUNCTURE 12:00:00 AM [facility] PROTHROMBIN TIME PROTHROMBIN TIME 01/22/2020 12:00:00 AM [facility] BLOOD COUNT COMPLETE AUTO&AUTO DIFRNTL WBC COUNT COMPLETE CB C W/AUTO DIFF WBC 01/22/2020 12:00:00 AM [facility] BASIC METABOLIC PANEL CALCIUM TOTAL METABOLIC PANEL TOTAL CA 01/22/2020 12:00:00 AM [facility] Non-covered item or service 07/02/2019 12:00:00 AM T [facility] EMERGENCY DEPARTMENT VISIT MODERATE SEVERITY EMERGENCY DEPT VISIT 07/02/2019 12:00:00 AM [facility] URNLS DIP STICK/TABLET REAGENT AUTO MICROSCOPY URINALYSIS AU TO W/SCOPE 05/20/2019 12:00:00 AM [facility] Results ID Date Data Source [id number] 02/29/2020 10:30:00 AM EST [facility] Name Value Range Interpretation Code Description Data Yanira rce(s) Supporting Document(s) SARS coronavirus 2 RNA Not Detected [facility] This lab was ordered by [facility] and reported by [facility]. ID Date Data Source [id number] 02/22/2020 09:00:00 AM EST [facility] Name Value Range Interpretation Code Description Data Yanira rce(s) Supporting Document(s) SARS coronavirus 2 RNA [facility] This lab was ordered by [facility] and reported by [facility]. ID Date Data Source [id number] 01/25/2020 09:25:00 AM EST [facility] Name Value Range Interpretation Code Description Data Yanira rce(s) Supporting Document(s) SARS coronavirus 2 RNA [facility] This lab was ordered by [facility] and reported by [facility]. ID Date Data Source [id number] 01/22/2020 12:55:00 PM EST [facility] Name Value Range Interpretation Code Description Data Yanira rce(s) Supporting Document(s) Sodium 139 mmol/L 136-145 Normal (applies to non-numeric resul ts) [facility] Potassium 3.5-5.1 Normal (applies to non-numeric resul ts) [facility] Chloride 102 mmol/L 98-107 Normal (applies to non-numeric resul ts) [facility] Carbon Dioxide CO2 21-32 Normal (applies to non-numer ic results) [facility] Anion Gap 5.0-16.0 Normal (applies to non-numeric resul ts) [facility] BUN 16 mg/dL 7-18 Normal (applies to non-numeric results) [facility] Creatinine,Serum 0.7-1.2 Normal (applies to non-numeric results) [facility] GFR >60 Normal (applies to non-numeric results) [facility] Glucose Level 106 mg/dL 60-99 Above high normal [facility] Reference range is only applicable when patient is fasting Note the following drug interference: Sulfasalazine Sulfapyridine Can see falsely depressed Can see falsely elevated result with up to 17% results with up to 11% decrease in measurement increase in measurement Recommend patients be collected for this test prior to administration of either drug. Calcium 8.5-10.1 Normal (applies to non-numeric resul ts) [facility] ID Date Data Source [id number] 01/22/2020 11:49:00 AM [facility] Name Value Range Interpretation Code Description Data Yanira rce(s) Supporting Document(s) PT 9.2-11.7 Normal (applies to non-numeric results) [facility] INR Normal (applies to non-numeric results) [facility] The use of INR is restricted to patients on stable oral anticoagulant. Therapeutic Range: 2.0 - 3.0 High Risk Range: 2.5 - 3.5 ID Date Data Source [id number] 01/22/2020 11:39:00 AM [facility] Name Value Range Interpretation Code Description Data Yanira rce(s) Supporting Document(s) White Blood Count 3.5-10.5 Normal (applies to non-numeri c results) [facility] Red Blood Count 3.90-5.00 Normal (applies to non-numeric results) [facility] Hemoglobin 12.0-15.5 Normal (applies to non-numeric resul ts) [facility] Hematocrit 34.9-44.5 Normal (applies to non-numeric resul ts) [facility] Mean Corpuscular Volume 81.2-95.1 Normal (applies to non- numeric results) [facility] Mean Corpuscular Hgb 25.6-32.2 Normal (applies to non-num germaine results) [facility] Mean Corpuscular Hgb Conc 32.0-36.0 Below low normal [facility] Red Cell Distribution Width 11.9-15.5 Normal (appli es to non-numeric results) [facility] Platelet Count 328 x10 3/uL 150-450 Normal (applies to non-numeric results) [facility] Mean Platelet Volume 9.4-12.4 Normal (applies to non-num germaine results) [facility] Neutrophils% (Auto) 31.0-71.0 Normal (applies to non-nume chacho results) [facility] Lymphocytes% (Auto) 20.0-55.0 Normal (applies to non-nume chacho results) [facility] Monocytes% (Auto) 4.0-12.0 Normal (applies to non-numeri c results) [facility] Eosinophils% (Auto) 1.0-8.0 Normal (applies to non-nume chacho results) [facility] Basophils% (Auto) 0.0-2.0 Normal (applies to non-numeri c results) [facility] Immature Granulocytes% (Auto) 0.0-2.0 Normal (nahomi lies to non-numeric results) [facility] Neutrophils# (Auto) 1.50-6.20 Above high normal [facility] Lymphocytes# (Auto) 1.20-4.00 Normal (applies to non-nume chacho results) [facility] Monocytes# (Auto) 0.00-0.90 Normal (applies to non-numeri c results) [facility] Eosinophils# (Auto) 0.00-0.50 Normal (applies to non-nume chacho results) [facility] Basophils# (Auto) 0.00-0.20 Normal (applies to non-numeri c results) [facility] Immature Granulocytes# (Auto) 0.00-7.00 No rmal (applies to non-numeric results) [facility] ID Date Data Source [id number] 01/22/2020 10:32:00 AM EST [facility] Exam Number: [id number] OF EXAMINATIO N: 01/21/2020 14:55 ESTDIGITAL MAMMO DANIEL ROUTINEHISTORY: ScreeningBased on the personal and family history information your patientsupplied at the time of imaging, her lifetime risk of breast cancerestimated date by the Tyrer-Cuzick model is 14.3%. If anything changesin the personal and/or family history this percentage could increaseor decrease. Currently, NCCN and ACS recommended adjunctive breast MRIscreening starting at age 30 for women with a > 20-25% lifetime riskof developing breast cancer.Comparison is made to prior study dated 07/17/2018.2-D bilateral digital mammogram in the CC and MLO planes wereperformed with supplemental 3-D tomosynthesis of both breasts.The images were analyzed through the latest version of the [employer] computer aided diagnosis system.The patient states that her last clinical breast examination was 2018.Craniocaudal and oblique lateral views of the breasts were obtained.There are scattered areas of fibroglandular density . There is nodominant mass, suspicious clustered calcification, or architecturaldistortion.IMPRESSION:No mammographic evidence of malignancy.BIRAD CATEGORY 1 - NEGATIVE, ROUTINE YEARLY MAMMOGRAPHIC FOLLOW-UPRECOMMENDED.10-15% of cancers are not identified by mammography. This usuallyoccurs when the mass is of the same radiographic density as thesurrounding breast tissue, emphasizing the importance of breast selfexamination (BSE) and physical examination. A normal mammogram shouldnot delay biopsy if a suspicious mass or abnormal findings are presentupon physical examination.Electronically signed in PS360 by: Trino Espinoza M.D. 01/22/202010:20 EST Reported By: Scarlett ESPINOZA M.D. Signed By: Carmela ESPINOZA M.D. Name Value Range Interpretation Code Description Data Yanira rce(s) Supporting Document(s) ID Date Data Source [id number] 01/04/2020 12:00:00 AM EST [facility] Name Value Range Interpretation Code Description Data Yanira rce(s) Supporting Document(s) SARS-CoV2 Rapid Antigen [facility] and reported by [facility]. ID Date Data Source [id number] 01/08/2020 12:32:00 PM [facility] C AND S IF INDICATED C AND S IF INDICATED Name Value Range Interpretation Code Description Data Yanira rce(s) Supporting Document(s) Color,Urine Colorl-Dk Y Normal (applies to non-numeric res ults) [facility] Clarity,Urine Clear Normal (applies to non-numeric re sults) [facility] Specific [place],Urine 1.005-1.030 Normal (applies to non- numeric results) [facility] pH,Urine 5.0-8.0 Normal (applies to non-numeric resul ts) [facility] Protein,Urine Negative Normal (applies to non-numeric re sults) [facility] Glucose,Urine Negative Normal (applies to non-numeric re sults) [facility] Ketones,Urine Negative Normal (applies to non-numeric re sults) [facility] Blood,Urine [facility] Negative Normal (applies to non-numeric results) [facility] Urobilinogen,Urine 0.2-1.0 Normal (applies to non-numer ic results) [facility] Leukocyte Esterase,Urine Negative Normal (applies to non -numeric results) [facility] Nitrite,Urine Negative Normal (applies to non-numeric re sults) [facility] ID Date Data Source [id number] 01/08/2020 12:32:00 PM [facility] C AND S IF INDICATED C AND S IF INDICATED Name Value Range Interpretation Code Description Data Yanira rce(s) Supporting Document(s) RBC,Urine None Seen [facility] WBC,Urine None Seen Normal (applies to non-numeric resul ts) [facility] Casts,Urine None Seen Normal (applies to non-numeric resu lts) [facility] Epithelial Cells,Urine None - Few Normal (applies to non-n umeric results) [facility] Bacteria,Urine None Seen Normal (applies to non-numeric r esults) [facility] ID Date Data Source [id number] 01/08/2020 12:29:00 PM EST [facility] Name Value Range Interpretation Code Description Data Yanira rce(s) Supporting Document(s) Triglycerides 137 mg/dL <150 Normal (applies to non-numeric re sults) [facility] Cholesterol 166 mg/dL 100-200 Normal (applies to non-numeric resu lts) [facility] LDL Cholesterol Calculated 92 0-130 Normal (applies to n on-numeric results) [facility] HDL Cholesterol 47 mg/dL 40-60 Normal (applies to non-numeric results) [facility] Cholesterol/HDL Ratio 3.6-6.7 Below low normal [facility] ID Date Data Source [id number] 01/08/2020 12:29:00 PM EST [facility] Name Value Range Interpretation Code Description Data Yanira rce(s) Supporting Document(s) Sodium 140 mmol/L 136-145 Normal (applies to non-numeric resul ts) [facility] Potassium 3.5-5.1 Normal (applies to non-numeric resul ts) [facility] Chloride 100 mmol/L 98-107 Normal (applies to non-numeric resul ts) [facility] Carbon Dioxide CO2 21-32 Normal (applies to non-numer ic results) [facility] Anion Gap 5.0-16.0 Normal (applies to non-numeric resul ts) [facility] BUN 15 mg/dL 7-18 Normal (applies to non-numeric results) [facility] Creatinine,Serum 0.7-1.2 Normal (applies to non-numeric results) [facility] GFR >60 Normal (applies to non-numeric results) [facility] Glucose Level 80 mg/dL 60-99 Normal (applies to non-numeric re sults) [facility] Reference range is only applicable when patient is fasting Note the following drug interference: Sulfasalazine Sulfapyridine Can see falsely depressed Can see falsely elevated result with up to 17% results with up to 11% decrease in measurement increase in measurement Recommend patients be collected for this test prior to administration of either drug. Calcium 8.5-10.1 Normal (applies to non-numeric resul ts) [facility] Bilirubin,Total 0.1-1.9 Normal (applies to non-numeric results) [facility] SGOT(AST) 12 U/L 15-37 Below low normal [facility] ananya Note the following drug interference: Sulfasalazine Sulfapyridine Can see falsely depressed Can see falsely elevated result with up to 10% results with up to 10% decrease in measurement increase in measurement Recommend patients be collected for this test prior to administration of either drug. SGPT(ALT) 28 U/L 12-78 Normal (applies to non-numeric resul ts) [facility] Note the following drug interference: Sulfasalazine Sulfapyridine Can see falsely depressed Can see falsely elevated result with up to 29% results with up to 10% decrease in measurement increase in measurement Recommend patients be collected for this test prior to administration of either drug. Alkaline Phosphatase 90 U/L 38-126 Normal (applies to non-num germaine results) [facility] can increase Alkaline Phosp le vels up to 2 times the normal adult value. Normal values for children and adolescents are 2 to 3 times the normal adult value. Total Protein 6.0-8.2 Normal (applies to non-numeric re sults) [facility] Albumin Level 3.4-5.0 Normal (applies to non-numeric re sults) [facility] ID Date Data Source [id number] 01/08/2020 12:29:00 PM [facility] Name Value Range Interpretation Code Description Data Yanira rce(s) Supporting Document(s) Thyroid Stimulate Hormone TSH 0.358-3.74 Above high normal [facility] ID Date Data Source [id number] 01/08/2020 12:29:00 PM [facility] Name Value Range Interpretation Code Description Data Yanira rce(s) Supporting Document(s) Free T4 (Free Thyroxine) 0.76-1.46 Normal (applies to non -numeric results) [facility] ID Date Data Source [id number] 01/08/2020 12:27:00 PM [facility] Name Value Range Interpretation Code Description Data Yanira rce(s) Supporting Document(s) Vitamin D, Total 30.0-100.0 Below low normal [facility] ID Date Data Source [id number] 01/08/2020 12:26:00 PM [facility] Name Value Range Interpretation Code Description Data Yanira rce(s) Supporting Document(s) White Blood Count 3.5-10.5 Normal (applies to non-numeri c results) [facility] Red Blood Count 3.90-5.00 Normal (applies to non-numeric results) [facility] Hemoglobin 12.0-15.5 Normal (applies to non-numeric resul ts) [facility] Hematocrit 34.9-44.5 Normal (applies to non-numeric resul ts) [facility] Mean Corpuscular Volume 81.2-95.1 Normal (applies to non- numeric results) [facility] Mean Corpuscular Hgb 25.6-32.2 Normal (applies to non-num germaine results) [facility] Mean Corpuscular Hgb Conc 32.0-36.0 Below low normal [facility] Red Cell Distribution Width 11.9-15.5 Normal (appli es to non-numeric results) [facility] Platelet Count 319 x10 3/uL 150-450 Normal (applies to non-numeric results) [facility] Mean Platelet Volume 9.4-12.4 Normal (applies to non-num germaine results) [facility] Neutrophils% (Auto) 31.0-71.0 Normal (applies to non-nume chacho results) [facility] Lymphocytes% (Auto) 20.0-55.0 Normal (applies to non-nume chacho results) [facility] Monocytes% (Auto) 4.0-12.0 Normal (applies to non-numeri c results) [facility] Eosinophils% (Auto) 1.0-8.0 Normal (applies to non-nume chacho results) [facility] Basophils% (Auto) 0.0-2.0 Normal (applies to non-numeri c results) [facility] Immature Granulocytes% (Auto) 0.0-2.0 Normal (nahomi lies to non-numeric results) [facility] Neutrophils# (Auto) 1.50-6.20 Above high normal [facility] Lymphocytes# (Auto) 1.20-4.00 Normal (applies to non-nume chacho results) [facility] Monocytes# (Auto) 0.00-0.90 Normal (applies to non-numeri c results) [facility] Eosinophils# (Auto) 0.00-0.50 Normal (applies to non-nume chacho results) [facility] Basophils# (Auto) 0.00-0.20 Normal (applies to non-numeri c results) [facility] Immature Granulocytes# (Auto) 0.00-7.00 No rmal (applies to non-numeric results) [facility] ID Date Data Source [id number] 05/22/2019 08:03:00 AM EDT [facility] Procedure Performed By: [facility] [address] [place] [address] Director: Bonifacio Mtz MD Name Value Range Interpretation Code Description Data Yanira rce(s) Supporting Document(s) Urine Culture Normal (applies to non-numeric re sults) [facility] ID Date Data Source [id number] 05/20/2019 06:49:00 PM EDT [facility] Name Value Range Interpretation Code Description Data Yanira rce(s) Supporting Document(s) Color,Urine Colorl-Dk Y Normal (applies to non-numeric res ults) [facility] Clarity,Urine Clear Normal (applies to non-numeric re sults) [facility] Specific [place],Urine 1.005-1.030 Normal (applies to non- numeric results) [facility] pH,Urine 5.0-8.0 Normal (applies to non-numeric resul ts) [facility] Protein,Urine Negative Normal (applies to non-numeric re sults) [facility] Glucose,Urine Negative Normal (applies to non-numeric re sults) [facility] Ketones,Urine Negative Normal (applies to non-numeric re sults) [facility] Blood,Urine Negative [facility] Bilirubin,Urine Negative Normal (applies to non-numeric results) [facility] Urobilinogen,Urine 0.2-1.0 Normal (applies to non-numer ic results) [facility] Leukocyte Esterase,Urine Negative Normal (applies to non -numeric results) [facility] Nitrite,Urine Negative Normal (applies to non-numeric re sults) [facility] RBC,Urine None Seen [facility] WBC,Urine None Seen [facility] Casts,Urine None Seen Normal (applies to non-numeric resu lts) [facility] Epithelial Cells,Urine None - Few Normal (applies to non-n umeric results) [facility] Crystals,Urine None Seen [facility] Bacteria,Urine None Seen [facility] ID Date Data Source [id number] 01/08/2019 11:13:00 AM [facility] CooleyJennifer [email or web address] [address] [place] [id number] NEW PATIENT CONSULTATIONNAME: LUCIANORAFALKELLY APHYSICIAN: BRIANNA ESQUIVEL MDDATE OF SERVICE: 01/08/19DATE OF : 66ACCOUNT #: [id number]: KELLY WALDENIDate: Jan 08, 2019DOB: 1970Physician: Brianna Esquivel M.D.Age: 48Note Title: [facility] [place], [place] [address]Bjtexxtaql for Referral:Mrs. Peña is a 48-year old white woman who was [facility] because of an elevated personal lifetime risk of breast cancercalculated at 20 % by the Tyrer-Cuzick model and because of a family historysignificant for hereditary cancer.Pertinent History :Mrs. Peña states that she has had a breast biopsy completed. The biopsywas indicated because the patient s physician found a palpable mass onexamination. Dr. Ronan Whitfield completed a biopsy in 1999 with path showing afibrocystic cyst and no malignancy. She denies a personal history of cancerincluding breast cancer, DCIS, LCIS or atypical ductal/lobular hyperplasia.The patient and had evaluation for endocervical atypical squamous metaplasiafound on biopsy on 10/30/14. Follow-up is at 5-10 year intervals. Colonoscopywas significant for a hyperplastic polyp on 05/30/14. No cancer was found.Family history is significant for bilateral breast cancer in her mother andmelanoma in her father.Because of the patient's elevated Tyrer Cuzick score she completed bilateralbreast MRI as adjunct to routine screening mammogram. The bilateral breast MRIwas completed on 12/24/18 and the patient presents today to review the results,discuss recommendations and for clinical breast examination. The results ofthe genetic testing with [facility] is negative for a deleterious genemutation. There is no variant of uncertain significance.Past Medical History:FibromyalgiaGastroesophageal reflux diseaseHypertensionPneumoniaPsoriatic arthritisRecurrent sinusitisVitamin D deficiencyPast Surgical History:Breast biopsy - RightEndometrial ablationRepair Right ACLTubal ligationGynecological History:Ms. PEÑA has had 3 pregnancies and 2 births.She is sandi-menopausal.Hormone use consists of Contraceptive Hormones for 5 years. Endometrialablation in 2014.Starting to experience hot flashes.No HRT.Did breast feed.Allergies:No Known Allergies.Current Medications:Bystolic Tablet Oral b.i.d. (Start Date - unknown)Effexor XR 150 mg (of 150 mg) Capsule SR 24 HR Oral daily (Start Date -unknown)Hair Skin Nails 1 Capsule Oral daily (Start Date - unknown)Lasix 1 Tablet Oral PRN (Start Date - unknown)Losartan Potassium-HCTZ 1 Tablet Oral b.i.d. (Start Date - unknown)Prevacid 1 Capsule Capsule Delayed Release Oral daily (Start Date - unknown)Skelaxin 800 mg (of 800 mg) Tablet Oral b.i.d. 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 Ms. PEÑA has neversmoked. She drinks occasionally. Ms. PEÑA reports no contact withhazardous material.Ms. PEÑA reports the following support systems: lives with spouse,significant other, family, or friends and lives in own house. Her diet consistsof regular meals. She indicates her activity level as: daily activities. 2-4drinks a month.Works for [employer].Family History:Ms. PEÑA's mother at age 73: Breast cancer at age 60, and Secondbreast cancer at age 64, and Pneumonia and exsanguination at age 73. 's father is alive: History of melanoma, and Sepsis secondary tourinary tract infection. Ms. PEÑA's maternal grandmother at age 62:PE after knee surgery at age 62.Review of Systems:BreastsNormal - No abnormal masses of breast, no nipple discharge or pain.Vital Signs:Performed on Jan 08, 2019 10:45CX168/96Eblgeziztpa09.3 ELbhxfn30.00 fbOaqez65 /jyvLvlatkyphky21 /minPerformed on Nov 06, 2018 10:66TBX04.88 (HIGH)BSA2.16 sq.xXiozej263 lbsBreas t Exam:Hematologic/LymphaticNormal - No tender or palpable lymph nodes in the supraclavicular, axillaryarea.BreastsNormal - Sitting examination: There is no dimpling, retraction of the nippleor discharge from the nipple of either breast with the patient's hands placedin her lap behind her neck and behind her back. Left breast is smaller thanright breast.Supine examination: Right breast with minimal soft fibrocystictissue in the lower mid breast, no hard masses palpable. Left breast withfibrocystic tissue palpable in the lower outer quadrant, no hard massespalpable.My Risk Results:Imaging:DATE OF EXAMINATION: 12/24/2018 13:20 ESTMRI BREAST DANIEL W/CADCLINICAL INDICATION: High risk for breast cancerTECHNIQUE: Multisequential, multi plantar MRI of the breasts wasperformed utilizing standard protocol. Post process imaging includingsubtraction, MIP and color kinetic maps were generated and reviewed.20 cc of MultiHance was administered intravenously.LAST MENSTRUAL PERIOD: Not providedCOMPARISON: No jeniffer or MRIsFINDINGS:BREAST DENSITY: Fibrofatty glandular tissue bilaterallyBACKGROUND ENHANCEMENT: Mild, symmetricalRIGHT BREAST: No suspicious enhancement in the right breast. Focus offerromagnetic change in the lateral posterior aspect of the rightbreast is likely secondary to prior biopsy at this site.LEFT BREAST: No suspicious enhancement in the left breast.OTHER: No suspicious axillary or internal mammary lymphadenopathy.IMPRESSION:No MRI features of malignancy.BIRAD CATEGORY 2 - BENIGN FINDINGS, ROUTINE YEARLY MAMMOGRAPHICFOLLOW-UP RECOMMENDED.RECOMMENDATIONS:1. Annual screening mammogram.2. Consider continued annual MRI surveillance as an adjunct tomammography for high risk screening.Electronically signed in PS360 by: Trino Espinoza M.D. 12/24/201814:25 ESTReported By: Scarlett ESPINOZA M.D.I mpression:1. Increased personal lifetime risk of breast cancer and family historysignificant for hereditary cancer.Plan:1. Bilateral breast MRI reveals breast density as fibrofatty glandular tissuebilaterally. Right breast with no suspicious enhancement, clip at previousbiopsy site. Left breast with no suspicious enhancement. No suspiciousaxillary or internal mammary lymphadenopathy. No MRI features of malignancy.Clinical breast examination was benign with soft fibrocystic tissue palpated inthe right breast and an area of linear fibrocystic tissue palpated in the leftbreast.The patients' newly c alculated Tyrer-Cuzick score is 16.2 %, therefore she isnot a candidate for MRI imaging of the breasts since her calculated personallifetime risk of breast cancer is under 20%. She should continue with annualscreening mammogram with bilateral breast ultrasound as indicated, annualclinical breast examination as well as breast self-examination.Again I discussed lifestyle changes with the patient which are associated witha reduced risk of cancer. These include dietary changes to reduce weight toreach the recommended BMI. Routine exercise at least 3 times a week for onehalf hour to one hour each session is associated with improved overall health.This is associated with a reduced rate of many cancers. She is aware that shemust make time for an exercise routine.The [facility] genetic panel is negative for a deleterious gene mutationwhich is associated with an increased risk of cancer. I discussed with thepatient the need to emphasize family history as her important risk and toreport any changes in her breasts or general health to her PCP. Also thepatient's skin is light and she should use sun block regularly and have skinscreening once a year.Electronically signed by: Brianna EsquivelCC: Name Value Range Interpretation Code Description Data Yanira rce(s) Supporting Document(s) Procedure Social History Code Duration Value Status Description Data Source(s ) Smoking 03/03/2020 12:00:00 AM EST Patient has never smoked co mpleted Patient has never smoked [employer] ([employer]) Vital Signs ID Date Data Source [id number] 07/18/2019 07:20:00 AM EDT [facility] spital Name Value Range Interpretation Code Description Data Source(s) Weight Measurement Method 8 8 [facility] Weight 4096 4096 [facility] pital Temperature Source 7 7 [facility] Temperature 97.6 97.6 [facility] spital Respiratory Effort 1 1 [facility] Respiratory Rate 20 20 [facility] Pulse Rate 63 63 [facility] pital Height 64 64 [facility] Blood Pressure 153/89 153/89 [facility] Weight Measurement Method 8 8 [facility] Weight 4096 4096 [facility] pital Temperature Source 7 7 [facility] Temperature 97.6 97.6 [facility] spital Respiratory Effort 1 1 [facility] Respiratory Rate 20 20 [facility] Pulse Rate 70 70 [facility] pital Height 64 64 [facility] Blood Pressure 153/89 153/89 [facility]
[2020-03-05] MEDS ORDERED: propofoL 200 MG/20 ML VIAL As Ordered ONE (08:47)
[2020-03-05] MEDS ORDERED: MIDAZOLAM INJ 2MG/2ML VIAL (J2250 PER 1MG) As Ordered ONE (08:47)
[2020-03-05] MEDS ORDERED: LIDOCAINE 2% 100MG/5ML SDV (FOR ANES.) As Ordered ONE (08:47)
[2020-03-05] MEDS ORDERED: ceFAZolin 1GM VIAL (J0690 PER 500MG) As Ordered ONE (09:22)
[2020-03-05] MEDS ORDERED: LIDOCAINE 1% SDV 30ML VIAL As Ordered ONE (09:22)
[2020-03-05] MEDS ORDERED: fentaNYL 100 MCG/2 ML INJECTION (J3010) As Ordered ONE (10:06)
[2020-03-05 11:30] VITALS: BP 133/62
--- NOTE | 2020-03-05 14:44 | RO ---
OPERATIVE NOTE DATE OF OPERATION: 03/05/2020 PREOPERATIVE DIAGNOSIS: Previous successful stage 1 InterStim for history of incontinence. POSTOPERATIVE DIAGNOSIS: Previous successful stage 1 InterStim for history of incontinence. PROCEDURE: Removal of the temporarily InterStim generator and placement of the permanent MRI compatible rechargeable InterStim neurostimulator with programming. SURGEON: Marta Zambrano M.D. HEALTH INSURANCE SPECIALIST: None. ANESTHESIA: Sedation and local. SPECIMENS: None. BRIEF DESCRIPTION OF PROCEDURE AND FINDINGS: There was brought to the operating room where she was sedated, positioned, prepped, and draped in the usual sterile fashion. She was then numbed over the connector to the temporarily generator, and we then made an incision there where the pocket would be created and disconnected the temporary neurostimulator. We then cut and removed the wire to that and holding the permanent lead, we connected the permanent rechargeable neurostimulator and set that a little towards the patient's midline so that we could create a pocket, which was irrigated with antibiotic latent irrigant and cauterized to maintain good hemostasis and with a good pocket created. We did suture with Ethibond suture the lead in place to try to keep it from wandering and then, carefully placed the neurostimulator. It took a couple of times to get it to lay flat, so we were careful to try to create a pocket that would hold this well so that recharging would go smoothly and we then carefully sewed the pocket around the generator to try to hold it steady in place, and then after the sewing it tested it and confirmed good placement, and closed the skin using 2-0 and 3-0 Vicryl respectively. Dry sterile dressing was then applied. The sutures over the midline initial lead placement were removed as were the sutures over the site for the extension to the temporary generator and the procedure was ended. ESTIMATED BLOOD LOSS: About 1 mL. FLUID REPLACEMENT: Crystalloid. COMPLICATIONS: None. CONDITION AND DISPOSITION: Brandy tolerated the procedure well and was recovering in the recovery room in good condition.
== END 2020-03-05 11:53 | disposition home or self-care (01) ==
LOC: M SDC 07:08
PROVIDERS: ATTEND Obstetrics & Gynecology
DX: R32 Unspecified urinary incontinence (principal); I10 Essential (primary) hypertension; E03.9 Hypothyroidism, unspecified; K21.9 Gastro-esophageal reflux disease without esophagitis; M79.7 Fibromyalgia; M35.00 Sjogren syndrome, unspecified; G47.30 Sleep apnea, unspecified; Z79.899 Other long term (current) drug therapy; Z88.8 Allergy status to other drugs, medicaments and biological substances
CPT/HCPCS: 64590; C1787; J0690; J3010